=== PATIENT | male | born 1990 | race Caucasian/White ===

== ENCOUNTER 2017-11-28 10:10 | Emergency (ER) | payer BC, MEDICAID ==
[~2017-11-28] VITALS: Ht 167.6 cm; Wt 90.9 kg
[2017-11-28 12:15] VITALS: BP 109/63
== END 2017-11-28 14:19 | disposition home or self-care (01) ==
LOC: EMS 10:12
DX: S06.0X1A Concussion with loss of consciousness of 30 minutes or less, initial encounter (principal); Y04.0XXA Assault by unarmed brawl or fight, initial encounter; Y93.89 Activity, other specified; Y92.89 Other specified places as the place of occurrence of the external cause; Y99.8 Other external cause status
CPT/HCPCS: 70450; 99284